=== PATIENT | female | born 1970 | race Caucasian/White ===

== ENCOUNTER 2020-02-03 09:22 | Outpatient (CLI) | payer OTHER, SELFPAY ==
[2020-02-03 10:04] LABS: Basophils Absolute Auto 0.1 K/mm3 (0.0-0.1); Basophils Percent Auto 1.1 % (0.2-1.2); Eosinophils Absolute Auto 0.2 K/mm3 (0-0.3); Eosinophils Percent Auto 3.7 % (0-4.4); Hematocrit 41.4 % (37.0-47.0); Hemoglobin 13.8 g/dL (12.0-15.0); Immature Granulocyte Absolute 0.01 K/mm3 (0.00-0.031); Immature Granulocyte Percent A 0.2 % (0-0.5); Lymphocytes Absolute Auto 2.79 K/mm3 (0.9-3.2); Lymphocytes Percent Auto 43.2 % (18.3-44.2); Mean Corpuscular HGB Conc 33.3 g/dl (32-36); Mean Corpuscular Hemoglobin 30.1 pg (26-34); Mean Corpuscular Volume 90.4 fl (80-100); Mean Platelet Volume 9.5 fl (7.4-10.4); Monocytes Absolute Auto 0.5 K/mm3 (0.1-0.6); Neutrophils Absolute Auto 2.9 K/mm3 (1.3-6.7); Neutrophils Percent Auto 44.8 % (45.5-73.1); Platelet Count Result 319 k/mm3 (150-375); Red Blood Count 4.58 M/mm3 (4.2-5.4); Red Cell Distribution Width 12.9 % (11.5-14.5); White Blood Count 6.5 K/mm3 (4.5-10.0)
[2020-02-03 12:29] LABS: Alanine Aminotransferase 35 U/L (4-35); Alkaline Phosphatase 98 U/L (38-126); Anion Gap 4 mmol/L (8-16); Aspartate Amino Transferase 35 U/L (14-36); Bilirubin,Total 0.5 mg/dL (0.2-1.3); Blood Urea Nitrogen 12 mg/dL (7-17); Calcium 9.3 mg/dL (8.4-10.2); Carbon Dioxide 31 mmol/L (22-30); Chloride 104 mmol/L (98-107); Estimated Glomerular Filt Rate > 60; Glucose 128 mg/dL (65-105); Potassium 4.1 mmol/L (3.4-5.0); Sodium 139 mmol/L (137-145)
[2020-02-08 15:44] LABS: CA 15-3 14 U/mL (<32)
== END 2020-02-03 09:23 | disposition home or self-care (01) ==
PROVIDERS: Visit Provider Internal Medicine Hematology & Oncology
DX: C50.211 Malignant neoplasm of upper-inner quadrant of right female breast (principal); Z17.0 Estrogen receptor positive status [ER+]
CPT/HCPCS: 36415; 80053; 85025; 86300

== ENCOUNTER 2020-04-06 08:58 | Outpatient (CLI) | payer OTHER, SELFPAY ==
[2020-04-06 09:17] LABS: Hemoglobin A1C 7.1 % (<5.7)
[2020-04-06 09:36] LABS: Cholesterol 213 mg/dL (0-200); HDL Direct 36 mg/dL (40-60); LDL Cholesterol Calculated 151 mg/dL (<130); Triglycerides 130 mg/dL (0-150)
== END 2020-04-06 08:59 | disposition home or self-care (01) ==
LOC: CHSLAB 09:00
PROVIDERS: PCP Family Medicine; Visit Provider Family Medicine
DX: E11.9 Type 2 diabetes mellitus without complications (principal); K21.9 Gastro-esophageal reflux disease without esophagitis; Z00.00 Encounter for general adult medical examination without abnormal findings; I10 Essential (primary) hypertension
CPT/HCPCS: 36415; 80061; 83036

== ENCOUNTER 2020-05-04 07:54 | Outpatient (RCR) | payer OTHER, SELFPAY ==
--- NOTE | 2020-05-04 09:00 | PTOPEVAL ---
Thank you for referring Genoveva Lovett to [facility].? The patient is scheduled to be seen for therapy? __2__x/week for 8 visits. Please review, sign, date and return this plan of care VINEET. I agree with and certify that the following plan of care is medically necessary. Referring Physician Date Admitting Provider: Attending Provider: Natasha Pradhan NP Referring Provider: *PT Outpatient Evaluation Start: 05/04/20 07:57 Freq: Status: Active Protocol: Document 05/04/20 07:58 JERE (Rec: 05/04/20 09:00 JERE [email or web address]) Therapy Assessment Status Assessment Status Assessment Status Evaluation Evaluation Information Problem Diagnosis right shoulder pain Onset 04/12/20 Subjective Information Pt. reports that she developed Query Text:As Reported By Patient/ right shoulder pain about 3 Family weeks ago. She describes heaviness through the entire right arm as well as pain into the neck and pec region. She reports that her pain is constant and can vary in intensity. She reports that pain is noticable with lifting or reaching out away from her body. 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 She reports that her goal is to decrease her pain and improve her right u.e. mobility. Prior Level of Function Activity Level (Last 3 Months) Occupation nurse [employer] Ambide[employer] Activity of Daily Living Ability Independent Indoor/Home Mobility Independent Community Mobility Independent Stairs Ability Independent Functional Cognition (Planning, Shopping Independent , Taking Medications) Cooking Yes Cleaning Yes Laundry Yes Shopping Yes Driving Yes Pain Assessment Pain Scale Pain Scale Used Numeric (1 - 10) Self Report Pain Assessment Right Arm(s) Reported Pain Level 4 Pain Description Aching,Burning,Tightness Pain Radiation Right Arm Pain Frequency Continuous Lowest Pain Intensity 2 Greatest Pain Intensity 7 Pain Aggravating Factors
--- NOTE | 2020-06-13 13:56 | PCPTNOTE ---
06/13/20 - patient has not been to skilled PT in nearly a month. as of this date, all progress towards goals will be taken from her most recent evaluation/note and patient will be DC'd from skilled PT services. VANESSA
== END 2020-05-18 14:18 | disposition home or self-care (01) ==
LOC: CHSPT 07:54
PROVIDERS: PCP Nurse Practitioner Family; Visit Provider Nurse Practitioner Family
DX: M25.511 Pain in right shoulder (principal)
CPT/HCPCS: 97014; 97110; 97161; G0283

== ENCOUNTER 2020-05-23 13:40 | Outpatient (CLI) | payer OTHER, SELFPAY ==
--- NOTE | ~2020-05-23 | XR_ITS ---
XR shoulder RT min 2V DATE: 05/23/2020 13:51 INDICATION: Right chronic shoulder pain TECHNIQUE: 4 views COMPARISON: 05/17/2010 right shoulder FINDINGS: Status post sternotomy. No fracture or dislocation, periosteal reaction or bone destruction or abnormal soft tissue calcifica tion. IMPRESSION: No significant radiographic abnormality of the right shoulder Reviewed, dictated and finalized at location B.
== END 2020-05-23 13:41 | disposition home or self-care (01) ==
PROVIDERS: PCP Family Medicine; Visit Provider Family Medicine
DX: M25.511 Pain in right shoulder (principal)
CPT/HCPCS: 73030

== ENCOUNTER 2020-12-22 16:27 | Outpatient (CLI) | payer OTHER, SELFPAY ==
[2020-12-22 16:41] LABS: Hematocrit 35.5 % (35.0-49.0); Hemoglobin 12.5 g/dL (12.0-15.0); Mean Corpuscular HGB Conc 35.2 g/dL (32.0-36.0); Mean Corpuscular Hemoglobin 31.6 pg (27.0-31.0); Mean Corpuscular Volume 89.9 fL (78.0-102.0); Mean Platelet Volume 9.3 fl (9.2-11.8); Platelet Count Result 270 K/mm3 (150-420); Red Blood Count 3.95 M/mm3 (4.20-5.40); Red Cell Distribution Width 12.6 % (11.6-14.4)
[2020-12-22 17:39] LABS: HIV 1 P24 AG Negative (Negative); HIV 1/2 AB Negative (Negative)
[2020-12-22 17:45] LABS: Alanine Aminotransferase 45 U/L (14-59); Albumin Level 3.7 g/dL (3.4-5.0); Alkaline Phosphatase 84 U/L (46-116); Anion Gap 12 mmol/L (8-16); Aspartate Amino Transferase 25 U/L (15-37); Bilirubin,Total 0.4 mg/dL (0.00-1.00); Blood Urea Nitrogen 18 mg/dL (7-18); Calcium 8.2 mg/dL (8.5-10.1); Carbon Dioxide 26 mmol/L (21-32); Chloride 104 mmol/L (98-108); Estimated Glomerular Filt Rate 53; Folic Acid 9.7 ng/mL (8.6->20); Glucose 227 mg/dL (70-99); Osmolality Calculated 302 mOsm/kg (285-295); Potassium 3.8 mmol/L (3.5-5.1); Sodium 142 mmol/L (136-145); Thyroid Stimulating Hormone 2.86 uIU/mL (0.36-3.74); Total Protein 6.9 g/dL (6.4-8.2); Vitamin B12 313 pg/mL (193-986)
[2020-12-29 13:46] LABS: Lyme Disease Ab (IgM), Blot Negative (Negative); Lyme Disease Ab(IgG), Blot Negative (Negative)
== END 2020-12-22 16:28 | disposition home or self-care (01) ==
LOC: CHSLAB 16:30
PROVIDERS: PCP Family Medicine; Visit Provider Family Medicine
DX: G50.9 Disorder of trigeminal nerve, unspecified (principal); E53.8 Deficiency of other specified B group vitamins
CPT/HCPCS: 36415; 80053; 82607; 82746; 84443; 85027; 86617; 86703

== ENCOUNTER 2021-01-16 09:22 | Outpatient (CLI) | payer OTHER, SELFPAY ==
[2021-01-16 09:42] LABS: Basophils Absolute Auto 0.1 K/mm3 (0.0-0.1); Basophils Percent Auto 0.8 % (0.2-1.2); Eosinophils Absolute Auto 0.3 K/mm3 (0-0.3); Eosinophils Percent Auto 3.2 % (0-4.4); Hematocrit 38.7 % (37.0-47.0); Immature Granulocyte Absolute 0.03 K/mm3 (0.00-0.031); Immature Granulocyte Percent A 0.4 % (0-0.5); Lymphocytes Absolute Auto 3.22 K/mm3 (0.9-3.2); Lymphocytes Percent Auto 41.6 % (18.3-44.2); Mean Corpuscular HGB Conc 33.6 g/dl (32-36); Mean Corpuscular Hemoglobin 30.2 pg (26-34); Monocytes Absolute Auto 0.5 K/mm3 (0.1-0.6); Monocytes Percent Auto 6.6 % (2.6-8.5); Neutrophils Absolute Auto 3.7 K/mm3 (1.3-6.7); Neutrophils Percent Auto 47.4 % (45.5-73.1); Platelet Count Result 309 k/mm3 (150-375); Red Cell Distribution Width 12.2 % (11.5-14.5); White Blood Count 7.7 K/mm3 (4.5-10.0)
[2021-01-16 09:46] LABS: Blood Urea Nitrogen 15 mg/dL (8-26); Carbon Dioxide 26 mmol/L (22-30); Chloride 104 mmol/L (98-109); Estimated Glomerular Filt Rate > 60; Glucose 116 mg/dL (70-105); Potassium 3.9 mmol/L (3.5-4.9); Sodium 143 mmol/L (138-146)
[2021-01-16 12:43] LABS: Alanine Aminotransferase 29 U/L (4-35); Albumin Level 4.2 g/dL (3.5-5.1); Alkaline Phosphatase 83 U/L (38-126); Anion Gap 7 mmol/L (8-16); Aspartate Amino Transferase 26 U/L (14-36); Bilirubin,Total 0.4 mg/dL (0.2-1.3); Blood Urea Nitrogen 15 mg/dL (7-17); Carbon Dioxide 26 mmol/L (22-30); Chloride 104 mmol/L (98-107); Estimated Glomerular Filt Rate > 60; Glucose 111 mg/dL (65-110); Potassium 3.9 mmol/L (3.4-5.0); Sodium 137 mmol/L (137-145)
[2021-01-19 16:10] LABS: CA 15-3 13 U/mL (<32)
== END 2021-01-16 09:23 | disposition home or self-care (01) ==
LOC: ANHLAB 09:23
PROVIDERS: PCP Family Medicine; Visit Provider Internal Medicine Hematology & Oncology
DX: C50.211 Malignant neoplasm of upper-inner quadrant of right female breast (principal); Z17.0 Estrogen receptor positive status [ER+]
CPT/HCPCS: 36415; 80048; 80053; 85025; 86300

== ENCOUNTER 2021-01-16 14:23 | Outpatient (CLI) | payer OTHER, SELFPAY ==
--- NOTE | ~2021-01-16 | XR_ITS ---
XR chest 2V DATE: 01/16/2021 14:44 INDICATION: History of double mastectomy for breast cancer. Right atrial tumor removed. TECHNIQUE: 2 view chest COMPARISON: 06/29/2018 CT chest 05/28/2017 1 view chest FINDINGS: Status post sternotomy. Borderline heart size. No hilar or mediastinal enlargement. No pu lmonary infiltrate or consolidation, pulmonary vascular congestion or pleural effusion or pneumothora x. Status post cholecystectomy. IMPRESSION: Status post sternotomy; no active cardiopulmonary disease Reviewed, dictated and finalized at location A. ROOM INTERN
== END 2021-01-16 14:24 | disposition home or self-care (01) ==
LOC: CHSIMG 14:25
PROVIDERS: PCP Family Medicine; Visit Provider Internal Medicine Hematology & Oncology
DX: C50.211 Malignant neoplasm of upper-inner quadrant of right female breast (principal); Z17.0 Estrogen receptor positive status [ER+]
CPT/HCPCS: 71046

== ENCOUNTER 2021-03-12 13:41 | Outpatient (CLI) | payer OTHER, SELFPAY ==
[2021-03-14 18:31] LABS: Hepatitis Be Antibody Nonreactive
[2021-03-15 12:35] LABS: TB Skin Test Erythema 0 mm; TB Skin Test Induration 0 mm (0-10); TB Skin Test Interpretation Negative (Negative); TB Skin Test Site Left Arm
[2021-03-15 18:33] LABS: Mumps Virus IgG Antibody <9.00 AU/mL; Rubella IgG Antibody 5.95 Index
== END 2021-03-12 13:42 | disposition home or self-care (01) ==
LOC: CHSLAB 13:44
PROVIDERS: PCP Nurse Practitioner Family; Visit Provider Nurse Practitioner Family
DX: Z02.1 Encounter for pre-employment examination (principal)
CPT/HCPCS: 36415; 86580; 86707; 86735; 86765; 86787

== ENCOUNTER 2021-06-22 12:52 | Outpatient (CLI) | payer SELFPAY ==
[2021-06-24 13:37] LABS: TB Skin Test Erythema 0 mm; TB Skin Test Induration 0 mm (0-10); TB Skin Test Interpretation Negative (Negative); TB Skin Test Site Left Arm
== END 2021-06-22 12:53 | disposition home or self-care (01) ==
LOC: CHSLAB 12:53
PROVIDERS: PCP Family Medicine; Visit Provider Family Medicine
DX: Z11.1 Encounter for screening for respiratory tuberculosis (principal)
CPT/HCPCS: 36415; 86580

== ENCOUNTER 2021-07-02 13:11 | Outpatient (CLI) | payer SELFPAY ==
[2021-07-02 13:22] LABS: Basophils Absolute Auto 0.06 K/mm3 (0.00-0.10); Basophils Percent Auto 0.8 % (0.0-1.0); Eosinophils Percent Auto 2.7 % (1.0-6.0); Hemoglobin 13.1 g/dL (12.0-15.0); Immature Granulocyte Absolute 0.03 K/mm3 (0.00-0.00); Immature Granulocyte Percent A 0.4 % (0.0-0.0); Lymphocytes Absolute Auto 3.07 K/mm3 (1.10-4.50); Lymphocytes Percent Auto 41.7 % (18.0-42.0); Mean Corpuscular HGB Conc 33.6 g/dL (32.0-36.0); Mean Corpuscular Hemoglobin 30.6 pg (27.0-31.0); Mean Corpuscular Volume 91.1 fL (78.0-102.0); Mean Platelet Volume 9.5 fl (9.2-11.8); Monocytes Absolute Auto 0.43 K/mm3 (0.10-0.90); Monocytes Percent Auto 5.8 % (2.0-11.0); Neutrophils Absolute Auto 3.6 K/mm3 (1.7-7.2); Neutrophils Percent Auto 48.6 % (50.0-70.0); Platelet Count Result 321 K/mm3 (150-420); Red Blood Count 4.28 M/mm3 (4.20-5.40); Red Cell Distribution Width 12.7 % (11.6-14.4); White Blood Count 7.4 K/mm3 (4.8-10.8)
[2021-07-02 13:42] LABS: Alanine Aminotransferase 37 U/L (14-59); Albumin Level 3.7 g/dL (3.4-5.0); Alkaline Phosphatase 87 U/L (46-116); Anion Gap 10 mmol/L (8-16); Aspartate Amino Transferase 19 U/L (15-37); Bilirubin,Total 0.3 mg/dL (0.00-1.00); Blood Urea Nitrogen 14 mg/dL (7-18); Calcium 8.6 mg/dL (8.5-10.1); Carbon Dioxide 27 mmol/L (21-32); Chloride 101 mmol/L (98-108); Estimated Glomerular Filt Rate 55; Glucose 247 mg/dL (70-99); Osmolality Calculated 294 mOsm/kg (285-295); Potassium 3.3 mmol/L (3.5-5.1); Sodium 138 mmol/L (136-145); Total Protein 7.5 g/dL (6.4-8.2)
[2021-07-05 20:57] LABS: CA 15-3 18 U/mL (<32)
== END 2021-07-02 13:12 | disposition home or self-care (01) ==
LOC: CHSLAB 13:13
PROVIDERS: PCP Family Medicine; Visit Provider Internal Medicine Hematology & Oncology
DX: C50.211 Malignant neoplasm of upper-inner quadrant of right female breast (principal); Z17.0 Estrogen receptor positive status [ER+]
CPT/HCPCS: 36415; 80053; 85025; 86300

== ENCOUNTER 2022-01-01 08:15 | Outpatient (CLI) | payer OTHER, SELFPAY ==
--- NOTE | ~2022-01-01 | XR_ITS ---
EXAMINATION: XR chest 2V DATE: 01/01/2022 08:39 INDICATION: Breast cancer of upper inner quadrant of right breast. TECHNIQUE: Frontal and lateral views of the chest were obtained. COMPARISON: Chest 2 views 01/16/2021 FINDINGS: Again seen is eventration of anterior right hemidiaphragm. No pneumonia, pleural effusion, or pneumothorax. The heart size is normal. Median sternotomy wires are noted. Surgical clips in the r ight upper quadrant are likely from cholecystectomy. IMPRESSION: 1. No evidence of metastatic disease. Reviewed, dictated and finalized at location A.
[2022-01-01 08:32] LABS: Basophils Absolute Auto 0.06 K/mm3 (0.00-0.10); Basophils Percent Auto 0.9 % (0.0-1.0); Eosinophils Absolute Auto 0.18 K/mm3 (0.02-0.50); Eosinophils Percent Auto 2.7 % (1.0-6.0); Hematocrit 37.5 % (35.0-49.0); Hemoglobin 12.7 g/dL (12.0-15.0); Immature Granulocyte Absolute 0.02 K/mm3 (0.00-0.00); Immature Granulocyte Percent A 0.3 % (0.0-0.0); Lymphocytes Absolute Auto 3.25 K/mm3 (1.10-4.50); Lymphocytes Percent Auto 48.6 % (18.0-42.0); Mean Corpuscular HGB Conc 33.9 g/dL (32.0-36.0); Mean Corpuscular Volume 91.5 fL (78.0-102.0); Mean Platelet Volume 9.4 fl (9.2-11.8); Monocytes Absolute Auto 0.49 K/mm3 (0.10-0.90); Monocytes Percent Auto 7.3 % (2.0-11.0); Neutrophils Absolute Auto 2.7 K/mm3 (1.7-7.2); Neutrophils Percent Auto 40.2 % (50.0-70.0); Platelet Count Result 294 K/mm3 (150-420); Red Cell Distribution Width 12.8 % (11.6-14.4); White Blood Count 6.7 K/mm3 (4.8-10.8)
[2022-01-01 09:30] LABS: Alanine Aminotransferase 31 U/L (14-59); Albumin Level 3.8 g/dL (3.4-5.0); Alkaline Phosphatase 84 U/L (46-116); Anion Gap 9 mmol/L (8-16); Aspartate Amino Transferase 18 U/L (15-37); Bilirubin,Total 0.2 mg/dL (0.00-1.00); Blood Urea Nitrogen 19 mg/dL (7-18); Calcium 8.7 mg/dL (8.5-10.1); Carbon Dioxide 30 mmol/L (21-32); Chloride 106 mmol/L (98-108); Estimated Glomerular Filt Rate 59; Glucose 154 mg/dL (70-99); Osmolality Calculated 305 mOsm/kg (285-295); Potassium 3.6 mmol/L (3.5-5.1); Sodium 145 mmol/L (136-145); Total Protein 7.4 g/dL (6.4-8.2)
[2022-01-04 04:14] LABS: CA 15-3 17 U/mL (<32)
== END 2022-01-01 08:16 | disposition home or self-care (01) ==
LOC: CHSLAB 08:19
PROVIDERS: PCP Family Medicine; Visit Provider Internal Medicine Hematology & Oncology
DX: C50.211 Malignant neoplasm of upper-inner quadrant of right female breast (principal); Z17.0 Estrogen receptor positive status [ER+]
CPT/HCPCS: 36415; 71046; 80053; 85025; 86300

== ENCOUNTER 2022-01-02 11:29 | Outpatient (CLI) | payer OTHER, SELFPAY ==
[2022-01-02 11:39] LABS: Hematocrit 39.9 % (35.0-49.0); Hemoglobin 13.5 g/dL (12.0-15.0); Mean Corpuscular HGB Conc 33.8 g/dL (32.0-36.0); Mean Corpuscular Hemoglobin 30.5 pg (27.0-31.0); Mean Corpuscular Volume 90.1 fL (78.0-102.0); Mean Platelet Volume 9.4 fl (9.2-11.8); Platelet Count Result 335 K/mm3 (150-420); Red Blood Count 4.43 M/mm3 (4.20-5.40); Red Cell Distribution Width 12.7 % (11.6-14.4); White Blood Count 6.6 K/mm3 (4.8-10.8)
[2022-01-02 11:43] LABS: Appearance Urine Clear (Clear); Bilirubin Urine Negative (Negative); Blood Urine Negative (Negative); Glucose Urine UA Negative (Negative); Ketones Urine Negative (Negative); Leukocyte Esterase Ur Negative (Negative); Nitrate Urine Negative (Negative); Protein Urine Negative (Negative); Urobilinogen Urine 0.2 mg/dL (0.2-1.0)
[2022-01-02 11:53] LABS: Add Urine Microscopic? NO; Color Urine Light Yellow (Yellow)
[2022-01-02 12:08] LABS: Alanine Aminotransferase 45 U/L (14-59); Albumin Level 3.8 g/dL (3.4-5.0); Alkaline Phosphatase 85 U/L (46-116); Anion Gap 8 mmol/L (8-16); Aspartate Amino Transferase 25 U/L (15-37); Bilirubin,Total 0.3 mg/dL (0.00-1.00); Blood Urea Nitrogen 11 mg/dL (7-18); Calcium 8.7 mg/dL (8.5-10.1); Carbon Dioxide 28 mmol/L (21-32); Chloride 106 mmol/L (98-108); Estimated Glomerular Filt Rate > 60; Glucose 132 mg/dL (70-99); Osmolality Calculated 295 mOsm/kg (285-295); Potassium 3.8 mmol/L (3.5-5.1); Sodium 142 mmol/L (136-145); Total Protein 7.8 g/dL (6.4-8.2)
[2022-01-02 12:12] LABS: CRP < 0.5 mg/dL (0.0-0.9)
[2022-01-02 12:22] LABS: Lipase 327 U/L (73-393)
== END 2022-01-02 11:30 | disposition home or self-care (01) ==
LOC: CHSLAB 11:31
PROVIDERS: PCP Family Medicine; Visit Provider Nurse Practitioner Family
DX: R10.9 Unspecified abdominal pain (principal)
CPT/HCPCS: 36415; 80053; 81003; 83690; 84484; 85027; 86140

== ENCOUNTER 2022-01-22 14:38 | Outpatient (CLI) | payer OTHER, SELFPAY ==
--- NOTE | ~2022-01-22 | US_ITS ---
US abdomen complete EXAMINATION: US Abdomen Complete INDICATION: Abdomen pain. Left lower quadrant mass. History of breast cancer. PROCEDURE: Realtime High Resolution abdomen ultrasound. COMPARISON: CT chest dated 06/29/2018 FINDINGS: Gallbladder is surgically absent. Common bile duct measures 6 mm. Liver echotexture is diffusely increased, consistent with fatty infiltration. No discrete hepatic mas s identified.. Pancreas within normal limits. Pancreatic tail is obscured by bowel gas. Spleen is unremarkeable. Renal echotexture is within normal limits bilaterally without hydronephrosis, contour deforming mass or renal stone. Right kidney measures 10.4 cm. Left kidney measures 10.1 cm. There is a left renal cyst measuring 2.1 cm. Visualized aspects of the aorta and IVC are within normal limits. Portal vein is patent. No sonograph ic Geronimo's sign indicated by the technologist. No abnormal masses are identified in the left lower a bdomen. IMPRESSION: 1: Hepatic steatosis. 2: No mass is identified in the left lower quadrant. If there is concern for abdominal mass, further evaluation with contrast-enhanced CT abdomen and pelvis recommended. Reviewed, dictated and finalized at location B. [facility] UN[facility] NURSE IMPRESSION: 1: Hepatic steatosis. 2: No mass is identified in the left lower quadrant. If there is concern for ab dominal mass, further evaluation with contrast-enhanced CT abdomen and pelvis r ecommended.
== END 2022-01-22 14:39 | disposition home or self-care (01) ==
LOC: CHSIMG 14:39
PROVIDERS: PCP Nurse Practitioner Family; Visit Provider Family Medicine
DX: R10.9 Unspecified abdominal pain (principal)
CPT/HCPCS: 76700

== ENCOUNTER 2022-07-26 11:59 | Outpatient (CLI) | payer BC, SELFPAY ==
[2022-08-01 13:42] LABS: CA 15-3 15 U/mL (<32)
== END 2022-07-26 12:00 | disposition home or self-care (01) ==
LOC: CHSLAB 12:02
PROVIDERS: PCP Family Medicine; Visit Provider Internal Medicine Hematology & Oncology
DX: C50.211 Malignant neoplasm of upper-inner quadrant of right female breast (principal); Z17.0 Estrogen receptor positive status [ER+]
CPT/HCPCS: 36415; 86300

== ENCOUNTER 2022-10-29 14:25 | Outpatient (CLI) | payer BC, SELFPAY ==
[2022-10-29 14:46] LABS: Basophils Absolute Auto 0.06 K/mm3 (0.00-0.10); Eosinophils Absolute Auto 0.13 K/mm3 (0.02-0.50); Eosinophils Percent Auto 2.1 % (1.0-6.0); Hematocrit 39.2 % (35.0-49.0); Hemoglobin 13.2 g/dL (12.0-15.0); Immature Granulocyte Absolute 0.02 K/mm3 (0.00-0.00); Immature Granulocyte Percent A 0.3 % (0.0-0.0); Lymphocytes Absolute Auto 2.77 K/mm3 (1.10-4.50); Lymphocytes Percent Auto 45.6 % (18.0-42.0); Mean Corpuscular HGB Conc 33.7 g/dL (32.0-36.0); Mean Corpuscular Hemoglobin 29.8 pg (27.0-31.0); Mean Corpuscular Volume 88.5 fL (78.0-102.0); Mean Platelet Volume 9.7 fl (9.2-11.8); Monocytes Absolute Auto 0.44 K/mm3 (0.10-0.90); Monocytes Percent Auto 7.2 % (2.0-11.0); Neutrophils Absolute Auto 2.7 K/mm3 (1.7-7.2); Neutrophils Percent Auto 43.8 % (50.0-70.0); Platelet Count Result 297 K/mm3 (150-420); Red Blood Count 4.43 M/mm3 (4.20-5.40); Red Cell Distribution Width 12.3 % (11.6-14.4); White Blood Count 6.1 K/mm3 (4.8-10.8)
[2022-10-29 15:05] LABS: Hemoglobin A1C 8.1 % (<5.7)
[2022-10-29 15:17] LABS: Thyroid Stimulating Hormone Reflex 2.84 u/IU/mL (0.36-3.74)
[2022-10-29 15:31] LABS: Alanine Aminotransferase 41 U/L (14-59); Albumin Level 3.5 g/dL (3.4-5.0); Alkaline Phosphatase 94 U/L (46-116); Anion Gap 8 mmol/L (8-16); Aspartate Amino Transferase 26 U/L (15-37); Bilirubin,Total 0.3 mg/dL (0.00-1.00); Blood Urea Nitrogen 15 mg/dL (7-18); Calcium 8.4 mg/dL (8.5-10.1); Carbon Dioxide 31 mmol/L (21-32); Chloride 103 mmol/L (98-108); Estimated Glomerular Filt Rate 58; Ferritin 194 ng/mL (8-252); Folic Acid 10.7 ng/mL (8.6->20); Glucose 173 mg/dL (70-99); Osmolality Calculated 298 mOsm/kg (285-295); Potassium 3.2 mmol/L (3.5-5.1); Sodium 142 mmol/L (136-145); Vitamin B12 402 pg/mL (193-986)
== END 2022-10-29 14:26 | disposition home or self-care (01) ==
LOC: CHSLAB 14:27
PROVIDERS: PCP Family Medicine; Visit Provider Family Medicine
DX: E53.8 Deficiency of other specified B group vitamins (principal); D50.9 Iron deficiency anemia, unspecified; E11.9 Type 2 diabetes mellitus without complications; R53.83 Other fatigue
CPT/HCPCS: 36415; 80053; 82607; 82728; 82746; 83036; 84443; 85025

== ENCOUNTER 2022-11-01 13:19 | Outpatient (CLI) | payer BC, SELFPAY ==
--- NOTE | ~2022-11-01 | US_ITS ---
Ultrasound of the bilateral axilla CLINICAL HISTORY: Swelling TECHNIQUE: Real-time sonographic imaging performed of the bilateral axillary regions. FINDINGS: No suspicious mass lesion or fluid collection seen. Questionable small right axillary lymph node noted, with suggestion of fatty hilum. IMPRESSION: No suspicious abnormality seen in either axilla. Reviewed, dictated and finalized at [facility].
== END 2022-11-01 13:20 | disposition home or self-care (01) ==
LOC: CHSIMG 13:20
PROVIDERS: PCP Family Medicine; Visit Provider Family Medicine
DX: R22.33 Localized swelling, mass and lump, upper limb, bilateral (principal)
CPT/HCPCS: 76882

== ENCOUNTER 2022-11-27 11:26 | Outpatient (CLI) | payer BC, SELFPAY ==
--- NOTE | 2022-12-03 20:05 | WPDHOMESLEEP ---
Sleep Study - Home Unattended Date of Study: 11/27/22 Ordering Provider: Sharath Samuels DO Interpreting Provider: Chelsea Freire, Home Sleep Study Type: Apnea Link Air Height: 1.68 m Weight: 86.674 kg Body Mass Index: 30.8 Neck Circumference (inches): 16 Bennett: 8 Reason for Sleep Study Daytime hypersomnia Sleep History The patient is a 52 old female with hypertension, diabetes, asthma and GERD that had a sleep study ordered by her primary care physician for evaluation of sleep apnea. The patient rarely awakens from sleep short of breath. She rarely awakens at night with heartburn, belching or cough. She frequently snores and is occasionally loud enough that others complain. She occasionally has trouble sleeping when she has a cold. She rarely wakes up gasping for air throughout the night. She denies having breathing problems at night observed by herself or others. She rarely sweats excessively at night. She occasionally has heart palpitations or irregular heartbeats during the night. She rarely falls asleep during the day and never while driving. She denies sleep paralysis and cataplexy. She rarely has trouble at school or work due to sleepiness. She rarely experiences vivid dreamlike scenes upon awakening or falling asleep. She denies feeling afraid of going to sleep she rarely has nightmares and rarely remembers her dreams. She denies having thoughts racing through her mind. She denies feeling sad or depressed. She rarely has anxiety. She frequently has muscular tension. She occasionally notices parts of her body jerk. She rarely kicks during the night. She occasionally has crawling and aching feelings in her legs and frequently has leg pain during the night. She frequently grinds her teeth during sleep and occasionally awakens with morning jaw pain. She is constantly bothered by pain during the day and frequently awakened by pain during the night. She constantly wakes up feeling stiff in the morning. She constantly wakes up with sore or achy muscles. She constantly wakes up with pain in the neck spine or other joints. She goes to bed at 7:15 a.m. on both weekdays and weekends. It takes her 15 minutes to fall asleep. She wakes up 3-4 times throughout the night to urinate and is able to fall back asleep within 5 minutes. She wakes up at 1:00 p.m. on both weekdays and weekends. She typically gets 4-6 hours of sleep per night. She will stay in bed for 10 minutes after waking up for the day. She currently lives with her adult son. She denies consuming any caffeinated beverages within 2 hours of bedtime. She denies engaging in physical exercise before bedtime. She will watch television before falling asleep. She will take naps on her day off and they are refreshing She consumes 4-5 caffeinated beverages per day. She quit smoking cigarettes 5 years ago. She denies alcohol and recreational drug use. [facility] Past Medical History Medical History BPPV (benign paroxysmal positional vertigo) Breast cancer DM2 (diabetes mellitus, type 2) Eustachian tube dysfunction GERD (gastroesophageal reflux disease) Hypertension Surgical History Surgical History History of cholecystectomy History of hysterectomy History of mastectomy Bilateral Family History Family History Mother Family history of pancreatic cancer Other Family history of coronary artery disease Hypertension Social History Social History Smoking packs per day: 0.5 Smoking cigarettes per day: 10.0 Years smoked: 12 Smoking pack-years: 6.00 Smoking status: Former smoker Smoking end date: 03/03/16 Alcohol intake: current Substance use: never Occupation/Education: occupation Additional occupation/ed
[2022-12-03 20:18] VITALS: BMI 30.8
== END 2022-12-02 09:14 | disposition home or self-care (01) ==
LOC: ANHCSM 11:28
PROVIDERS: PCP Family Medicine; Visit Provider Family Medicine
DX: R40.0 Somnolence (principal); G47.33 Obstructive sleep apnea (adult) (pediatric)
CPT/HCPCS: 95806

== ENCOUNTER 2023-03-14 03:07 | Emergency (ER) | payer OTHER, SELFPAY ==
[2023-03-14 03:07] VITALS: BP 176/90; PULSE 71; RESP 18; TEMP 36.2; O2SAT 97
--- NOTE | 2023-03-14 03:17 | ED.BACK ---
HPI - Back Pain/Injury General Stated Complaint: back pain Time Seen by Provider: 03/14/23 03:10 Source: patient Mode of arrival: ambulatory Limitations: no limitations History of Present Illness HPI Narrative: this is 52-year-old female with history of diabetes hypertension presents with low back pain after she was doing some lifting earlier today patient has a history of bulging discs, radiating down her left leg with sciatic discomfort with no saddle paresthesias has taken Aleve [id number] with minimal relief. MD elicited complaint: back pain Pertinent past history: prior back pain Onset (ago): hour(s) Timing: constant Severity: severe Pain scale (0-10): 8 Similar Symptoms Previously: Yes Quality: aching and spasming Location: lumbar spine Radiation: left upper leg Exacerbating factors: movement Relieving factors: immobilization Context: while lifting, turning/twisting and bending Related Data Home Medications Medication Instructions Recorded Confirmed naproxen sodium 220 mg capsule 440 mg PO DAILY PRN 04/28/20 01/02/22 famotidine 20 mg tablet (Pepcid) 20 mg PO DAILY 07/14/20 01/02/22 Allergies Allergy/AdvReac Type Severity Reaction Status Date / Time No Known Allergies Allergy Verified 10/29/22 07:28 Review of Systems Review of Systems: All systems reviewed & are unremarkable except as noted in HPI and below PMFSH Past Medical History Medical History BPPV (benign paroxysmal positional vertigo) Breast cancer DM2 (diabetes mellitus, type 2) Eustachian tube dysfunction GERD (gastroesophageal reflux disease) Hypertension Surgical History Surgical History History of cholecystectomy History of hysterectomy History of mastectomy Bilateral Family History Family History Mother Family history of pancreatic cancer Other Family history of coronary artery disease Hypertension Social History Social History Smoking packs per day: 0.5 Smoking cigarettes per day: 10.0 Years smoked: 12 Smoking pack-years: 6.00 Smoking status: Former smoker Smoking end date: 03/03/16 Alcohol intake: current Substance use: never Occupation/Education: occupation Additional occupation/education comments: [employer] Exam Const: General: healthy appearing Nutritional Appearance: well nourished Orientation/consciousness: patient oriented x3 Limitations: no limitations Resp: Effort & Inspection: normal respiratory effort Auscultation: clear to auscultation bilaterally Cardio: Rate: regular rate Rhythm: regular rhythm GI: GI Palp: Yes Soft to palpation Auscultation: normal bowel sounds Back/Spine/Pelvis: Back: no CVA tenderness Neuro: General: patient oriented x3 Extrem: Other: L4 left paravertebral tenderness with palpation with a positive straight leg raising test on Course Course Emergency Course: patient received 60mg IM Toradol 60mg muscle relaxer and reassessment patient's pain level has improved. Vital Signs Vital signs: Vital Signs Temperature 36.2 C L 03/14/23 03:07 Pulse Rate 71 03/14/23 03:07 Respiratory Rate 18 03/14/23 03:07 Blood Pressure 176/90 H 03/14/23 03:07 Pulse Oximetry 97 03/14/23 03:07 Oxygen Delivery Room Air 03/14/23 03:07 Temperature 36.2 C L 03/14/23 03:07 Pulse Rate 71 03/14/23 03:07 Respiratory Rate 18 03/14/23 03:07 Blood Pressure 176/90 H 03/14/23 03:07 Pulse Oximetry 97 03/14/23 03:07 Oxygen Delivery Room Air 03/14/23 03:07 Critical Care Time Critical Care Time Critical Care Time: No Discharge Plan Discharge Clinical Impression: Sciatica Patient Disposition: Home, Self-Care Condition: Stable Instructions: Antibiotic Form Additi
[2023-03-14] MEDS: KETOROLAC (*BKC) 60 MG/2 ML VIAL IM (03:30)
[2023-03-14] MEDS: ORPHENADRINE CITRATE 30 MG/ML 2 ML VIAL 60 MG IM (03:34)
== END 2023-03-14 04:08 | disposition home or self-care (01) ==
PROVIDERS: Emergency Provider Emergency Medicine; PCP Family Medicine
DX: M54.30 Sciatica, unspecified side (principal); I10 Essential (primary) hypertension; Z85.3 Personal history of malignant neoplasm of breast; E11.9 Type 2 diabetes mellitus without complications; Z87.891 Personal history of nicotine dependence
CPT/HCPCS: 96372; 99284; J1885; J2360

== ENCOUNTER 2023-05-20 15:18 | Outpatient (CLI) | payer OTHER, SELFPAY ==
[2023-05-23 04:46] LABS: CA-125 10 U/mL (<35)
== END 2023-05-20 15:19 | disposition home or self-care (01) ==
LOC: CHSLAB 15:18
PROVIDERS: PCP Nurse Practitioner Family; Visit Provider Nurse Practitioner Family
DX: C50.211 Malignant neoplasm of upper-inner quadrant of right female breast (principal); Z17.1 Estrogen receptor negative status [ER-]; R22.31 Localized swelling, mass and lump, right upper limb
CPT/HCPCS: 36415; 86304

== ENCOUNTER 2024-04-07 07:40 | Outpatient (CLI) | payer SELFPAY ==
--- OUTSIDE RECORDS SUMMARY | 2024-04-07 07:45 | XMS_ITS | Clinical Summary ---
Author Organization [facility] Address [address] [address] Phone Care Team Providers Care Power Shear Operator Name Role Phone Francisco Elias MD Primary Care Provider [phone] Allergies No known active allergies Medications aspirin EC 81 MG Tablet Delayed Response Take 81 mg by mouth daily. Active cyclobenzaprine (FLEXERIL) 10 MG Tablet Take 10 mg by mouth 3 times daily as needed for Muscle spasms. Active losartan (COZAAR) 25 MG Tablet Take 25 mg by mouth daily. Active tamoxifen (NOLVADEX) 10 MG Tablet Take 20 mg by mouth daily. Active venlafaxine (EFFEXOR) 37.5 MG Tablet Take 37.5 mg by mouth 2 times daily. Active albuterol (PROVENTIL HFA) 108 (90 Base) MCG/ACT Aerosol Solution take 2 Puffs by inhalation every 6 hours as needed for Wheezing. Active calcium carbonate (TUMS) 500 MG Chewable Tablet Take 2 Tabs by mouth daily. Active oxyCODONE-aceta minophen (PERCOCET) 5-325 MG Tablet Take 1 Tab by mouth every 4 hours as needed for Moderate or more severe pain. Active docusate sodium (COLACE) 100 MG Capsule Take 100 mg by mouth 2 times daily as needed for Constipation. Active Social History Tobacco Use Types Packs/Day Years Used Date Smoking Tobacco: Never Assessed Comments Unknown Sex and Gender Information Value Date Recorded Sex Assigned at Not on file Legal Sex Female 9:44 PM CDT Gender Identity Not on file Sexual Orientation Not on file Last Filed Vital Signs Vital Sign Reading Time Taken Comments Blood Pressure 114/80 12/17/2017 1:43 PM CDT Pulse 91 12/17/2017 1:43 PM CDT Temperature 36.7 ??C (98.1 ??F) 12/17/2017 1:43 PM CD T Respiratory Rate 18 12/17/2017 1:43 PM CDT Oxygen Saturation 98% 12/17/2017 1:43 PM CDT Inhaled Oxygen Concentration - - Weight 83.9 kg (185 lb) 12/17/2017 1:43 PM CDT Height 162.6 cm (5' 4 ) 12/17/2017 1:01 AM CDT Body Mass Index 31.76 12/17/2017 1:01 AM CDT Plan of Treatment Health Maintenance Due Date Last Done Comments Hepatitis C Virus (HCV) Screening 1970 TdaP Immunization 1970 Hepatitis B Immunization (1 of 3 - 19+ 3-dose series) 09/19/1990 Zoster Immunization (1 of 2) 09/19/1990 Pap Smear 09/19/1992 Cervical Cancer Screening (CCS) 09/19/2001 HPV/Cotest 09/19/2001 Colonoscopy 09/19/2016 Colorectal Cancer Screening 09/19/2016 SARS-COV-2 Immunization (3 - Moderna risk series) 04/25/2020 03/28/2020, 02/29/2020 Cologuard 09/19/2021 Immunochemical Fecal Occult Blood 09/19/2021 Mammogram 09/19/2021 Pneumococcal Immunization (5 0+ years) (1 of 1 - PCV) 09/19/2021 Influenza Immunization (#1) 2023 Respiratory Syncytial Virus (RSV) Immunization (Adult) (1 - 1-dose 75+ series) 09/19/2046 Meningococcal Immunization (ACWY) Aged Out No longer eligible b ased on patient's age to complete this topic Pneumococcal Immunization Combined Aged Out No longer eligible b ased on patient's age to complete this topic Rotavirus Immunization Aged Out No lo nger eligible based on patient's age to complete this topic Insurance [facility] [place] [address] Care Teams Power Shear Operator Relationship Specialty Start Date End Date Francisco Elias MD [address] [place] [address] PCP - General Family Medicine 12/12/17
--- OUTSIDE RECORDS SUMMARY | 2024-04-07 07:45 | XMS_ITS | Clinical Summary ---
Author Organization [facility] Address [address] [place] [address] Care Team Providers Care Offset Press Operator Helper Name Role Phone Francisco Elias MD Primary Care Provider [phone] Allergies Active Allergy Reactions Criticality Noted Date Comments Banana Itching Low 12/01/2017 Medications albuterol HFA 90 mcg inhaler Take 2 Puffs by inhalation every 4 hours as needed . Active losartan (COZAAR) 100 mg tablet 9 Active metFORMIN (GLUCOPHAGE) 500 mg tabletIndicatio ns:pt taking 250mg prn . 9 Active metoprolol tartrate (LOPRESSOR) 100 mg tablet 1 Active calcium as carbonate 215 mg calcium (500 mg) Tablet, Chewable Take 2 Tablets by mouth. Active celecoxib (CeleBREX) 200 mg capsuleIndicati ons:Malignant neoplasm of upper-inner quadrant of right breast in female, estrogen receptor positive (CMS/HCC) TAKE 1 CAPSULE BY MOUTH DAILY 90 Capsule 3 1 Active cyclobenzaprine (FLEXERIL) 10 mg tabletIndicatio ns:Malignant neoplasm of upper-inner quadrant of right breast in female, estrogen receptor positive (CMS/HCC) TAKE 1 TABLET BY MOUTH 3 TIMES DAILY NEEDED FOR SPASM(S) 30 Tablet 3 2 Active Ozempic 0.25 mg or 0.5 mg(2 mg/1.5 mL) Pen Injector 2 Active Active Problems Problem Noted Date Diagnosed Date HER2-positive carcinoma of right breast 11/12/19 19 Overview (02/09/2019): Stage: ypT1 ypN0 Date of diagnosis: 04/23/18 Diagnosis: RIGHT Post chemo: 1.1 cm, 0/3 LN ER(+) TX(+) Her 2 (+) Surgeon: Dr. 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 08/06/2018 Acquired absence of right breast 08/06/2018 SERM use (selective estrogen receptor modulator) 08/06/2018 History of antineoplastic chemotherapy 9 Malignant neoplasm of upper- inner quadrant of right breast in female, estrogen receptor positive 05/06/2017 Acquired absence of bilateral breasts and nipple s Family History Medical History Relation Name Comments Healthy Brother Heart Disease Father Cancer Mother pancreatic Relation Name Status Comments Brother Alive Father Alive Mother Social History Tobacco Use Types Packs/Day Years Used Date Smoking Tobacco: Former Cigarettes 0.5 13 0 04/22/2004 - 04/22/2017 Smokeless Tobacco: Never Tobacco Cessation:Counseling Given: Not Answered Alcohol Use Standard Drinks/Week Comments Yes 0 (1 standard drink = 0.6 oz pur e alcohol) occasional Comments No Sex and Gender Information Value Date Recorded Sex Assigned at Not on file Legal Sex Female 4:51 AM 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 DRIVER Gender Identity Not on file Sexual Orientation Not on file Last Filed Vital Signs Vital Sign Reading Time Taken Comments Blood Pressure 138/88 11/15/2021 10:34 AM CDT Pulse 59 11/15/2021 10:34 AM CDT Temperature 36.3 ??C (97.4 ??F) 07/16/2021 10:08 AM C DT Respiratory Rate 20 09/01/2019 12:02 PM CDT Oxygen Saturation 98% 07/16/2021 10:08 AM CDT Inhaled Oxygen Concentration - - Weight 87.1 kg (192 lb) 11/15/2021 10:34 AM CDT Height 165.1 cm (5' 5 ) 11/15/2021 10:34 AM CDT Body Mass Index 31.95 11/15/2021 10:34 AM CDT Plan of Treatment Health Maintenance Due Date Last Done Comments DTAP/TDAP/TD VACCINES (1 - Tdap) 09/19/1990 HEPATITIS B VACCINES (1 of 3 - 19+ 3-dose series) 09/19/1990 CERVICAL CANCER SCREENING 09/19/2001 COLORECTAL SCREENING 09/19/2016 Colorectal Cancer Screening 09/19/2016 FIT-DNA Q 3 years 09/19/2016 FIT/FOBT Q 1 year 09/19/2016 Flex Sig/CT Colonography Q 5 years 09/19/2016 ZOSTER VACCINE (1 of 2) 09/19/2021 BREAST CANCER SCREENING 11/15/2022 11/16/19 22, 09/01/2019, 03/10/2019, Additional history exists INFLUENZA VACCINE (#1) 2023 12/05/2018 PNEUMOCOCCAL VACCINE 0-64 YEARS Aged Out No longer eligible based on patient's age to complete this topic Medical Devices Implanted Type Area Sap Senior Developer Device Identifier Shelf Expiration Date Model / Serial / Lot Imp Breast Inspira Ssx 800ml Ssx-800 - [id number] Implanted:Qty: 1 on 09/01/2019 by Jim Iglesias MD at [facility] Right: Breast ALLERGAN- MEDICAL 04/12/2024 SSX-800 / [id number] / Imp Breast Inspira Ssx 800ml Ssx-800 - [id number] Implanted:Qty: 1 on 09/01/2019 by Jim Iglesias MD at [facility] Left: Breast ALLERGAN- MEDICAL 04/05/2024 SSX-800 / [id number] / Mesh-12/08/2017 Implanted:10/2017 (Quantity not on file) Mesh Heart Alloderm Select Tissue Matrix Rtu, Contour Large Perforated Thick Implanted:Qty: 1 on 02/09/2019 by Jim Iglesias MD at [facility] Tissue Left: Breast ALLERGAN- MEDICAL [id number] 10/31/2020 [id number] / / [id number] Description:BILL ONLY REQ#[id number] Alloderm Select Tissue Matrix Rtu, Contour Large Perforated Thick Implanted:Qty: 1 on 02/09/2019 by Jim Iglesias MD at [facility] Tissue Left: Breast ALLERGAN- MEDICAL [id number] 10/31/2020 [id number] / / [id number] Description:BILL ONLY REQ#[id number] Alloderm Select Tissue Matrix Rtu, Contour Large Perforated Thick Implanted:Qty: 1 on 02/09/2019 by Jim Iglesias MD at [facility] Tissue Right: Breast ALLERGAN- MEDICAL 10/31/2020 [id number] / / [id number] Description:BILL ONLY REQ#[id number] Alloderm Select Tissue Matrix Rtu, Contour Large Perforated Thick Implanted:Qty: 1 on 02/09/2019 by Jim Iglesias MD at [facility] Tissue Right: Breast ALLERGAN- MEDICAL 10/31/2020 [id number] / / [id number] Explanted Type Area Sap Senior Developer Device Identifier Shelf Expiration Date Model / Serial / Lot Tissue Weather Forcaster W/ Suture Tabs Smooth Full Height Extra Projection Implanted:Qty: 1 on 02/09/2019 by Jim Iglesias MD at [facility] Explanted:Qty: 1 on 09/01/2019 at [facility] Left: Breast ALLERGAN- MEDICAL [id number] 11/06/2023 133S-FX-1 3-T / [id number] / Description:Both Allergan Ti ssue Expanders are processed on purchase order [id number] Tissue Weather Forcaster W/ Suture Tabs Smooth Full Height Extra Projection Implanted:Qty: 1 on 02/09/2019 by Jim Iglesias MD at [facility] Explanted:Qty: 1 on 09/01/2019 at [facility] Right: Breast ALLERGAN- MEDICAL [id number] 07/20/2023 133S-FX-1 3-T / [id number] / Description:Purchase order 1 [id number] Port Explanted:Qty: 1 on 02/09/2019 at [facility] Chest Procedures Procedure Name Priority Date/Time Associated Diagnosis Comments MAMMO SCRN UNI LEFT W OR WO CAD Routine 06/29/2018 Visit for screening mammogram from Last 3 Months or Most Recently Relevant to Health Maintenance Results * MAMMO SCRN UNI LEFT W OR WO CAD (06/29/2018) Anatomical Region Laterality Modality Breast Left Other Keshawn Quiroga MD MAMMO ORDERABLES Final Result from Last 3 Months or Most Recently Relevant to Health Maintenance Insurance Member Subscriber Plan / Payer (Ef fective 2019-Present) Name:Genoveva Lovett Relation to Subscriber:Not on file Name:Bony Genoveva Gayee Subscriber ID:Not on file Date of :1970 Payer ID:Not on file Type:RX Commercial Address: [address] Advance Directives For more information, please contact: [phone] * Full Code (Latest Code Status on File) Date Activated Date Inactivated Comments 09/01/2019 6:52 AM 09/01/2019 3:29 PM * Full Code Date Activated Date Inactivated Comments 09/01/2019 6:04 AM 09/01/2019 6:52 AM * Full Code Date Activated Date Inactivated Comments 02/09/2019 1:08 PM 02/10/2019 2:19 PM * Full Code Date Activated Date Inactivated Comments 02/09/2019 8:13 AM 02/09/2019 1:08 PM * Full Code Date Activated Date Inactivated Comments 02/09/2019 5:44 AM 02/09/2019 8:13 AM Care Teams Offset Press Operator Helper Relationship Specialty Start Date End Date Francisco Elias MD [address] [place] [address] PCP - General Family Practice 05/05/17
--- OUTSIDE RECORDS SUMMARY | 2024-04-07 07:45 | XMS_ITS | Referral Summary ---
Author Organization [facility] [address] Address [address] [place] [address] Care Team Providers Care Flying Instructor Name Role Phone Francisco Elias MD Primary Care Provider [phone] Allergies Active Allergy Reactions Criticality Noted Date Comments Banana Itching Low 12/01/2017 Medications albuterol HFA (PROVENTIL HFA,VENTOLIN HFA) 90 mcg/actuation inhaler Inhale 2 puffs every 6 (six) hours as needed for wheezing. Active levocetirizine (XYZAL) 5 mg tablet Active metoprolol XL (TOPROL-XL) 50 mg extended release tablet Take 50 mg by mouth 2 (two) times a day Active losartan (COZAAR) 100 mg tablet 04/24/2018 Active metFORMIN (GLUCOPHAGE) 500 mg tablet Take 250 mg by mouth 2 (two) times a day with meals 03/09/2018 Active cyclobenzaprine (FLEXERIL) 10 mg tablet Take 10 mg by mouth 3 (three) times a day as needed 08/17/2018 Active semaglutide (OZEMPIC) 0.25 mg or 0.5 mg(2 mg/1.5 mL) pen injector injection Inject 0.25 mg under the skin every 7 days Active Active Problems Problem Noted Date Diagnosed Date Essential hypertension 08/24/2019 Pre-operative cardiovascular examination 020 Diastolic dysfunction 08/24/2019 Acute pain 12/08/2017 Assessment & Plan (12/09/2017 11:58 AM CDT): Fent and OXY PRN Assessment & Plan (12/08/2017 5:07 PM CDT): Fent and OXY PRN PONV (postoperative nausea and vomiting) 018 Assessment & Plan (12/09/2017 11:58 AM CDT): - Zofran and Compazine PRN - Place Scopolamine patch - nausea improved today Assessment & Plan (12/08/2017 5:07 PM CDT): - Zofran and Compazine - Place Scopolamine patch 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 The myxoma was resected with a 2 mm rim of normal tissue. The resultant defect was closed with a bovine pericardial patch - pain control - High risk for arrhythmia keep K>4 and Mag > 2.2 - MAP >65 off pressors - Pulm Hygiene - IS/ OOB - ADAT - Bowel regimen - colace - PUD PPX: Pepcid - Glycemic control - insulin drip - Ekta-Op ABX -DVT PPX: Bilateral SCD's Chemical PPX: Lovenox Assessment & Plan (12/08/2017 5:06 PM CDT): - myxoma was attached to the lower part of the inner atrial septum on the medial side of the fossa ovalis. The myxoma was resected with a 2 mm rim of normal tissue. The resultant defect was closed with a bovine pericardial patch - pain control - High risk for arrhythmia keep K>4 and Mag > 2.2 - MAP >65 on NorEpi -post op labs and CXR - wean sedation and extubate within 6 hrs - NPO , ADAT once extubated - Bowel regimen - colace - PUD PPX: Pepcid - Glycemic control - insulin drip - Ekta-Op ABX -DVT PPX: Bilateral SCD's Chemical PPX: start POD #1 SOB (shortness of breath) 09/11/2017 Sinus tachycardia 09/11/2017 Malignant neoplasm of left female breast 018 Low back pain 07/17/2013 Overview (06/05/2016): LUMBAGO Impaired fasting glucose 10/14/2011 Overview (06/05/2016): Impaired fasting glucose Hypocalcemia 10/14/2011 Overview (06/05/2016): Hypocalcemia Resolved Problems Problem Noted Date Diagnosed Date Resolved Date Postprocedural hypotension 12/08/2017 1 Assessment & Plan (12/08/2017 5:07 PM CDT): NorEpi for MAP >65 - likely related to sedation Elevated BP without diagnosis of hypertension 05/28/19 18 08/24/2019 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 07/16/2019 Social History Tobacco Use Types Packs/Day Years Used Date Smoking Tobacco: Former Cigarettes Q uit: 04/29/2017 Smokeless Tobacco: Never Tobacco Cessation:Counseling Given: Not Answered Alcohol Use Standard Drinks/Week Comments Yes 0 (1 standard drink = 0.6 oz pur e alcohol) about 4-5 times per year Comments Unknown Sex and Gender Information Value Date Recorded Sex Assigned at Not on file Legal Sex Female 12:59 AM 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 Gender Identity Female 12/23/2018 3:31 AM CDT Sexual Orientation Straight 12/23/2018 3 :31 AM CDT Last Filed Vital Signs Vital Sign Reading Time Taken Comments Blood Pressure 164/98 05/24/2022 10:56 AM CDT Pulse 76 05/24/2022 10:22 AM CDT Temperature 36.9 ??C (98.4 ??F) 05/24/2022 1 0:22 AM CDT Respiratory Rate 18 05/24/2022 10:2 2 AM CDT Oxygen Saturation 96% 05/24/2022 10: 22 AM CDT Inhaled Oxygen Concentration - - Weight 88.4 kg (194 lb 12.8 oz) 023 10:22 AM CDT Height 162.6 cm (5' 4.02 ) 05/24/2022 1 0:22 AM CDT Body Mass Index 33.42 05/24/2022 10:22 AM CDT Plan of Treatment Not on file Medical Devices Implanted Type Area Quarter Lining Smoother Device Identifier Shelf Expiration Date Model / Serial / Lot [employer] Pc-[id number] Supple Ekta-Guard [place] Processing 8x6cm Patch Cardiovascular - [id number] Implanted:Qty: 1 on 12/08/2017 by Aakash Worley MD at [facility] Other - see comments N/A: Heart [facility] [employer] 05/14/2022 PC-[id number] N / / [id number] Description:Atrial septum Insurance [facility] Advance Directives For more information, please contact: [phone] * Full Code (Latest Code Status on File) Date Activated Date Inactivated Comments 12/08/2017 1:18 PM 12/13/2017 6:06 PM Care Teams Flying Instructor Relationship Specialty Start Date End Date Francisco Elias MD [address] [place] [address] PCP - General Family Medicine 05/20/17
--- OUTSIDE RECORDS SUMMARY | 2024-04-07 07:45 | XMS_ITS | Clinical Summary ---
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 07/16/2019 Surgical History Surgery Date Site/Laterality Comments SECTION section X 3 CHOLECYSTECTOMY Cholecystectomy REDUCTION MAMMOPLASTY 03/03/2007 - 03/02/2008 Breast reduction PARTIAL HYSTERECTOMY MASTECTOMY Right PORTACATH PLACEMENT Left BREAST SURGERY 10/2003 and 10/2017 SECTION 1987, 1989, 2001 Medical History Medical History Date Comments Hypertension Hypertension Hx Other Medical 2011 dysphagia - per ENdoscopy Adiposity Obesity PONV (postoperative nausea and vomiting) Mitral regurgitation Atrial myxoma Asthma GERD (gastroesophageal reflux disease) History of transfusion 1987 Breast cancer (HCC) Arthritis Back pain DDD (degenerative disc disease), lumbar Anemia 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 Family History Medical History Relation Name Comments Diabetes Brother 2 Tommy Coronary artery disease Father Skip Bibiana nary artery disease; Diabetes Father Skip Heart attack Father Skip Hypertension Father Skip Hypertension; Other Father Skip [place], CAD; Cancer Mother Donita Pancreatic cancer Mother Donita Cancer -pa ncreatic; /Cancer, pancreatic; Cause of : Cancer, pancreatic Relation Name Status Comments Brother 1 Alive Brother 2 Tommy Father Skip Alive Mother Donita (Age 42) Social History Tobacco Use Types Packs/Day Years [...] on file Legal Sex Female 12:59 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 Gender Identity Female 12/23/2018 3:31 AM CDT Sexual Orientation Straight 12/23/2018 3: 31 AM CDT Obstetrics History Last Filed Vital Signs Vital Sign Reading [...] 05/24/2022 10:22 AM CDT Plan of Treatment Health Maintenance Due Date Last Done Comments Breast Cancer Screening-Mammogram 1971 Cervical Cancer Screening 1971 Colon Cancer Screening-Colonoscopy 1971 Depression Screening 1971 Hepatitis C Screening 1971 Hepatitis B Screening 09/19/1989 Regular Well Visit/Exam 18-64 09/19/1989 Zoster Vaccine (1 of 2) 09/19/2021 Covid-19 Vaccine (3 - 2023-2 5 season) 2023 03/28/2020, 02/29/2020 Influenza Vaccine (#1) 2023 DTaP/Tdap/Td Vaccine (2 - Td or Tdap) 03/14/2030 03/14/2020 Pneumococcal vaccine <65 Aged Out No longer eligible based on patient's age to complete this topic Medical Devices Implanted Type Area Remote Sensing Engineer Device Identifier Shelf Expiration Date Model / Serial / Lot [facility] [id number] Supple Ekta-Guard [employer] Processing 8x6cm Patch Cardiovascular - [id number] Implanted:Qty: 1 on 12/08/2017 by Aakash Worley MD at [facility] Other - see comments N/A: Heart [facility] [employer] 05/14/2022 PC-[id number] N / / [id number] Description:Atrial septum Insurance [facility] Advance Directives For more information, please contact: [phone] * Full Code (Latest Code Status on File) Date Activated Date Inactivated Comments 12/08/2017 1:18 PM 12/13/2017 6:06 PM Care Teams Canvas Baster Jumpbasting Relationship Specialty Start Date End Date Francisco Elias MD [address] [place] [address] PCP - General Family Medicine 05/20/17
--- OUTSIDE RECORDS SUMMARY | 2024-04-07 07:45 | XMS_ITS | Encounter Summary ---
Author Organization [employer] [facility] Address 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
--- OUTSIDE RECORDS SUMMARY | 2024-04-07 07:45 | XMS_ITS | Encounter Summary ---
Author Organization [facility] Address [address] [place] [address] Care Team Providers Care Softball Umpire Name Role Phone Unavailable Primary Care Provider Unavailabl e Encounter Details Date Type Department Care Team (Late st Contact Info) Description 08/08/2018 Abstract [facility]FL CONVERSION [address] [place] [address] , Generic Conversion, Social History Tobacco Use Types Packs/Day Years Used Date Smoking Tobacco: Never Assessed Comments Unknown Sex and Gender Information Value Date Recorded Sex Assigned at Not on file Legal Sex Female 4:48 PM CDT Gender Identity Not on file Sexual Orientation Not on file documented as of this encounter Plan of Treatment Not on file documented as of this encounter Visit Diagnoses Not on filedocumented in this encounter
--- OUTSIDE RECORDS SUMMARY | 2024-04-07 07:45 | XMS_ITS | Clinical Summary ---
Author Organization [facility] Address [address] [place] [address] Care Team Providers Care Worship Director Name Role Phone Unavailable Primary Care Provider Unavailabl e Social History Tobacco Use Types Packs/Day Years Used Date Smoking Tobacco: Never Assessed Comments Unknown Sex and Gender Information Value Date Recorded Sex Assigned at Not on file Legal Sex Female 4:48 PM CDT Gender Identity Not on file Sexual Orientation Not on file Plan of Treatment Health Maintenance Due Date Last Done Comments Cervical Cancer Screening Pa p Smear (Age 30 to 64) Every 3 Years 1971 Colorectal Cancer Screening Colonoscopy (10 Years) 1971 Annual Physical 09/19/1974 Hepatitis C 09/19/1989 Hepatitis B Vaccines (1 of 3 - 19+ 3-dose series) 09/19/1990 Cervical Cancer Screening Pa p with HPV Testing (Age 30 to 64) Every 5 Years 09/19/2001 Cervical Cancer Screening wi th HPV 09/19/2001 Mammogram Screening 2011 Zoster Vaccines (1 of 2) 09/19/2021 COVID-19 Vaccine ( - 2023-2 5 season) 2023 03/28/2020, 02/29/2020 Influenza Adult (#1) 2023 DTaP, Tdap and Td Vaccines ( 2 - Td or Tdap) 03/14/2030 03/14/2020 Meningococcal B Vaccine Aged Out No l onger eligible based on patient's age to complete this topic Meningococcal Vaccine Aged Out No wander makenna eligible based on patient's age to complete this topic Pneumococcal Vaccine: Pediatrics (0 to 5 Years) and At-Risk Patients (6 to 64 Years) Aged Out No longer eligible b ased on patient's age to complete this topic RSV Immunizations Under 20 Months Aged Out No longer eligible b ased on patient's age to complete this topic Insurance [facility]
[2024-04-07 07:57] LABS: Basophils Absolute Auto 0.04 K/mm3 (0.00-0.10); Basophils Percent Auto 0.8 % (0.0-1.0); Eosinophils Absolute Auto 0.36 K/mm3 (0.02-0.50); Eosinophils Percent Auto 6.8 % (1.0-6.0); Hemoglobin 13.8 g/dL (12.0-15.0); Immature Granulocyte Absolute 0.01 K/mm3 (0.00-0.00); Immature Granulocyte Percent A 0.2 % (0.0-0.0); Lymphocytes Absolute Auto 2.35 K/mm3 (1.10-4.50); Lymphocytes Percent Auto 44.2 % (18.0-42.0); Mean Corpuscular HGB Conc 33.7 g/dL (32-36); Mean Corpuscular Hemoglobin 29.7 pg (27.0-31.0); Mean Corpuscular Volume 88.2 fL (78.0-102.0); Mean Platelet Volume 9.8 fl (9.2-11.8); Monocytes Absolute Auto 0.51 K/mm3 (0.10-0.90); Monocytes Percent Auto 9.6 % (2.0-11.0); Neutrophils Absolute Auto 2.05 K/mm3 (1.70-7.20); Neutrophils Percent Auto 38.4 % (50.0-70.0); Platelet Count Result 241 K/mm3 (150-420); Red Blood Count 4.65 M/mm3 (4.20-5.40); Red Cell Distribution Width 12.2 % (11.6-14.4); White Blood Count 5.3 K/mm3 (4.8-10.8)
[2024-04-07 08:07] LABS: Creatinine Urine 250.87 mg/dL (40-278); MALB Creatinine Ratio 9.5 mg/g (0-30); Microalbumin Urine Random 23.9 mg/L
[2024-04-07 08:30] LABS: Hemoglobin A1C 11.2 % (<5.7)
[2024-04-07 08:51] LABS: Alanine Aminotransferase 49 U/L (14-59); Alkaline Phosphatase 89 U/L (46-116); Anion Gap 12 mmol/L (4-12); Aspartate Amino Transferase 32 U/L (15-37); Bilirubin,Total 0.4 mg/dL (0.00-1.00); Blood Urea Nitrogen 14 mg/dL (7-18); Calcium 8.8 mg/dL (8.5-10.1); Carbon Dioxide 24 mmol/L (21-32); Chloride 104 mmol/L (98-108); Cholesterol 219 mg/dL (0-200); Estimated Glomerular Filt Rate > 60; Glucose 268 mg/dL (70-99); HDL Direct 30 mg/dL (40-60); LDL Cholesterol Calculated 149 mg/dL (<130); Osmolality Calculated 299 mOsm/kg (285-295); Potassium 3.6 mmol/L (3.5-5.1); Sodium 140 mmol/L (136-145); Thyroid Stimulating Hormone 2.78 uIU/mL (0.36-3.74); Triglycerides 201 mg/dL (0-150)
[2024-04-07 08:58] LABS: Albumin Level 3.5 g/dL (3.4-5.0)
== END 2024-04-07 07:41 | disposition home or self-care (01) ==
LOC: CHSLAB 07:43
PROVIDERS: PCP Nurse Practitioner Family; Visit Provider Nurse Practitioner Family
DX: Z00.00 Encounter for general adult medical examination without abnormal findings (principal); E11.9 Type 2 diabetes mellitus without complications
CPT/HCPCS: 36415; 80053; 80061; 82043; 83036; 84443; 85025

== ENCOUNTER 2024-04-27 07:41 | Outpatient (CLI) | payer OTHER, SELFPAY ==
--- OUTSIDE RECORDS SUMMARY | 2024-04-27 07:46 | XMS_ITS | Clinical Summary ---
Author Organization [facility] Address [address] [place] [address] Care Team Providers Care Medical Advisor Name Role Phone Francisco Elias MD Primary Care Provider [phone] Allergies Active Allergy Reactions Criticality Noted Date [...] Post chemo: 1.1 cm, 0/3 LN ER(+) IA(+) Her 2 (+) Surgeon: Dr. 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 Gender Identity Not on file Sexual Orientation Not on file Last Filed Vital Signs Vital Sign Reading Time Taken Comments Blood Pressure 138/88 11/15/2021 10:34 AM CDT Pulse 59 11/15/2021 10:34 AM CDT Temperature 36.3 C (97.4 F) 07/16/2021 10:08 AM CDT Respiratory Rate 20 09/01/2019 12:02 PM CDT [...] of 2) 09/19/2021 BREAST CANCER SCREENING 11/15/2022 11/16/19, 09/01/2019, 03/10/2019, Additional history exists INFLUENZA VACCINE (#1) 2023 12/05/2018 PNEUMOCOCCAL VACCINE 0-64 YEARS Aged Out No longer eligible based on patient's age to complete this topic Medical Devices Implanted Type Area Anesthesia Associate Device Identifier Shelf Expiration Date Model / Serial / Lot Imp Breast Inspira Ssx 800ml Ssx-800 - [id number] Implanted:Qty: 1 on 09/01/[place] [facility] [place] Breast [employer]ERGAN- MEDICAL 04/12/2024 SSX-800 / [id number] / Imp Breast Inspira Ssx 800ml Ssx-800 - [id number] Implanted:Qty: 1 on 09/01/2019 [place] Iglesias [place] [facility] [place]: Breast [employer] MEDICAL 04/05/2024 SSX-800 / [id number] / Mesh-12/08/2017 Implanted:10/2017 (Quantity not on file) Mesh Heart Alloderm Select Tissue Matrix Rtu, Contour Large Perforated Thick Implanted:Qty: 1 on 02/09/2019 by Jim Iglesias MD at [facility] Tissue Left: Breast ALLERGAN- MEDICAL [id number] 10/31/2020 [id number] / / [id number] Description:BILL ONLY REQ#[id number] Alloderm Select Tissue Matrix Rtu, Contour Large Perforated Thick Implanted:Qty: 1 on 02/09/2019 by Jim Iglesias MD at [facility] Tissue Left: Breast ALLERGAN- MEDICAL [id number] 10/31/2020 [id number] / / [id number] Description:BILL ONLY REQ#92 [id number] Alloderm Select Tissue Matrix Rtu, Contour Large Perforated Thick Implanted:Qty: 1 on 02/09/2019 by Jim Iglesias MD at [facility] Tissue Right: Breast ALLERGAN- MEDICAL 10/31/2020 [id number] / / [id number] Description:BILL ONLY REQ#92 [id number] Alloderm Select Tissue Matrix Rtu, Contour Large Perforated Thick Implanted:Qty: 1 on 02/09/2019 by Jim Iglesias MD at [facility] Tissue Right: Breast ALLERGAN- MEDICAL 10/31/2020 [id number] / / [id number] Explanted Type Area Anesthesia Associate Device Identifier Shelf Expiration Date Model / Serial / Lot Tissue Carbon Paper Coating Machine Setter W/ Suture Tabs Smooth Full Height Extra Projection Implanted:Qty: 1 on 02/09/2019 by Jim Iglesias MD at [facility] Explanted:Qty: 1 [place]01/2019 [place] [facility] [place] Breast [employer]ERGAN- MEDICAL [id number] 11/06/2023 133S-FX-1 3-T / [id number] / Description:Both Allergan Ti ssue Expanders are processed on purchase order [id number] Tissue Carbon Paper Coating Machine Setter W/ Suture Tabs Smooth Full Height Extra Projection Implanted:Qty: 1 on 02/09/2019 by Jim Iglesias MD at [facility] Explanted:Qty: 1 [place] [facility] [place]: Breast ALLERGAN- MEDICAL [id number] 07/20/2023 133S-FX-1 3-T / [id number] / Description:Purchase order 1 [id number] Port Explanted:Qty: 1 on 02/09/2019 at [facility] Chest Procedures Procedure Name Priority Date/Time [...] Advance Directives For more information, please contact: [phone] * Full Code (Latest Code Status on [...] 5:44 AM 02/09/2019 8:13 AM Care Teams Medical Advisor Relationship Specialty Start Date End Date Francisco Elias MD [address] [place] [address] PCP - General Family Practice 05/05/17
--- OUTSIDE RECORDS SUMMARY | 2024-04-27 07:46 | XMS_ITS | Clinical Summary ---
Author Organization [facility] Address [address] [address] Phone Care Team Providers Care Food Adviser Name Role Phone Francisco Elias MD Primary Care Provider Allergies No known active allergies Medications aspirin [...] 91 12/17/2017 1:43 PM CDT Temperature 36.7 C (98.1 F) 12/17/2017 1:43 PM CDT Respiratory Rate 18 12/17/2017 1:43 PM CDT Oxygen Saturation 98% 12/17/2017 1:43 PM CDT Inhaled Oxygen Concentration - - Weight 83.9 kg (185 lb) 12/17/2017 1:43 PM CDT Height 162.6 cm (5' 4 ) 12/17/2017 1:01 AM CDT Body Mass Index 31.76 12/17/2017 1:01 AM CDT Plan of Treatment Health Maintenance Due Date Last Done Comments Hepatitis C Virus (HCV) Screening 1971 Mammogram 1971 TdaP Immunization 1971 Hepatitis B Immunization (1 of 3 - 19+ 3-dose series) 09/19/1990 Zoster Immunization (1 of 2) 09/19/1990 Pap Smear 09/19/1992 Cervical Cancer Screening (CCS) 09/19/2001 HPV/Cotest 09/19/2001 Colonoscopy 09/19/2016 Colorectal Cancer Screening 09/19/2016 SARS-COV-2 Immunization (3 - Moderna risk series) 04/25/2020 03/28/2020, 02/29/2020 Cologuard 09/19/2021 Immunochemical Fecal Occult Blood 09/19/2021 Pneumococcal Immunization (5 0+ years) (1 [...] patient's age to complete this topic Insurance [facility] Care Teams Food Adviser Relationship Specialty Start Date End Date Francisco Elias MD [address] [place] [address] PCP - General Family Medicine 12/12/17
--- OUTSIDE RECORDS SUMMARY | 2024-04-27 07:46 | XMS_ITS | Encounter Summary ---
Author Organization [employer] [facility] Address 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
--- OUTSIDE RECORDS SUMMARY | 2024-04-27 07:46 | XMS_ITS | Clinical Summary ---
Author Organization [facility] Address [address] [place] [address] Care Team Providers Care Mobile Home Laborer Name Role Phone Unavailable Primary Care Provider [...] patient's age to complete this topic Insurance [facility]
--- OUTSIDE RECORDS SUMMARY | 2024-04-27 07:46 | XMS_ITS | Encounter Summary ---
Author Organization [facility] Address [address] [place] [address] Care Team Providers Care Personal Property Appraiser Name Role Phone Unavailable Primary Care Provider Unavailabl e Encounter Details Date Type Department Care Team (Late st Contact Info) Description 08/08/2018 Abstract SFL CONVERSION [address] [place] [address] , Generic Conversion, Social History Tobacco Use [...]
--- OUTSIDE RECORDS SUMMARY | 2024-04-27 07:47 | XMS_ITS | Referral Summary ---
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 Gender Identity Female 12/23/2018 3:31 AM CDT Sexual Orientation Straight 12/23/2018 3 :31 AM CDT Last Filed Vital Signs Vital Sign Reading Time Taken Comments Blood Pressure 164/98 05/24/2022 10:56 AM CDT Pulse 76 05/24/2022 10:22 AM CDT Temperature 36.9 C (98.4 F) 05/24/2022 10:22 AM CDT Respiratory Rate 18 05/24/2022 10:2 [...] on file Medical Devices Implanted Type Area Purchasing Specialist Device Identifier Shelf Expiration Date Model / Serial / Lot [employer] [id number] Supple Ekta-Guard [place] [employer] 8x6cm Patch Cardiovascular - [id number] Implanted:Qty: 1 on 12/08/2017 by Aakash Worley MD at [facility] Other - see comments N/A: Heart [facility] 05/14/2022 PC-0608S N / / [id number] Description:Atrial septum Insurance [facility] Advance Directives For more information, please contact: [phone] * Full Code (Latest Code Status on File) Date Activated Date Inactivated Comments 12/08/2017 1:18 PM 12/13/2017 6:06 PM Care Teams Coal Briquette Machine Operator Relationship Specialty Start Date End Date Francisco Elias MD [address] [place] [address] PCP - General Family Medicine 05/20/17
--- OUTSIDE RECORDS SUMMARY | 2024-04-27 07:47 | XMS_ITS | Clinical Summary ---
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 Gender Identity Female 12/23/2018 3:31 AM CDT [...] this topic Medical Devices Implanted Type Area Auxiliary Operator Device Identifier Shelf Expiration Date Model / Serial / Lot mention [id number] Supple Ekta-Guard [place] [employer] 8x6cm Patch Cardiovascular - [id number] Implanted:Qty: 1 on 12/08/2017 by Aakash Worley MD at [facility] Other - see comments N/A: Heart mention 05/14/2022 PC-0608S N / / [id number] Description:Atrial septum Insurance [facility] Advance Directives For more information, please contact: [phone] * Full Code (Latest Code Status on File) Date Activated Date Inactivated Comments 12/08/2017 1:18 PM 12/13/2017 6:06 PM Care Teams Cement Railroad Car Loader Relationship Specialty Start Date End Date Francisco Elias MD [address] [place] [address] PCP - General Family Medicine 05/20/17
[2024-04-28 12:18] LABS: CA-125 9 U/mL (<35)
== END 2024-04-27 07:42 | disposition home or self-care (01) ==
LOC: CHSLAB 07:43
PROVIDERS: PCP Nurse Practitioner Family; Visit Provider Nurse Practitioner Family
DX: C50.211 Malignant neoplasm of upper-inner quadrant of right female breast (principal); Z17.1 Estrogen receptor negative status [ER-]
CPT/HCPCS: 36415; 86304